=== PATIENT | female | born 1985 | race Two or more races ===

== ENCOUNTER 2019-11-20 07:27 | Outpatient (CLI) | payer OTHER ==
[2019-11-20 13:06] LABS: MEAN CORPUSCULAR HEMOGLOBIN 29.3 pg (27.0-34.8); MEAN CORPUSCULAR HGB CONC 33.4 g/dL (32.4-35.8); MEAN CORPUSCULAR VOLUME 87.7 fL (80-100); MEAN PLATELET VOLUME 8.3 fL (7.4-10.4); PLATELET COUNT 315 x10^3/uL (130-400); RED BLOOD COUNT 4.02 x10^6/uL (3.82-5.3); RED CELL DISTRIBUTION WIDTH 12.7 % (9.6-15.2)
[2019-11-20 13:07] LABS: CHLORIDE 105 mmol/L (98-107)
[2019-11-20 13:16] LABS: ALANINE AMINOTRANSFERASE 16 U/L (12-78); ALBUMIN 2.7 g/dL (3.4-5.0); ALKALINE PHOSPHATASE 91 U/L (45-117); ANION GAP 7 mmol/L (5-15); BILIRUBIN,TOTAL 0.3 mg/dL (0.2-1.0); CALCIUM 8.8 mg/dL (8.5-10.1); CREATININE 0.53 mg/dL (0.55-1.02); GLUCOSE,1H PP 50GM DOSE 134 mg/dL (74-106); TOTAL PROTEIN 6.3 g/dL (6.4-8.2)
== END 2019-11-20 23:59 | disposition home or self-care (01) ==
LOC: CFH 07:27
PROVIDERS: ATTEND Obstetrics & Gynecology
DX: Z34.02 Encounter for supervision of normal first pregnancy, second trimester (principal); Z3A.00 Weeks of gestation of pregnancy not specified
CPT/HCPCS: 36415; 80053; 82950; 85027; 86592

== ENCOUNTER 2020-01-13 10:37 | Outpatient (CLI) | payer OTHER ==
[~2020-01-13] VITALS: Ht 162.6 cm; Wt 96.3 kg
[2020-01-13 10:54] VITALS: BP 134/80
[2020-01-13 11:55] LABS: MICROSCOPIC NOT IND
[2020-01-13 12:09] LABS: BASOPHILS # (AUTO) 0.02 x10^3/uL (0-0.1); BASOPHILS % (AUTO) 0 % (0-1); EOSINOPHILS # (AUTO) 0.04 x10^3/uL (0-0.4); EOSINOPHILS % (AUTO) 0 % (1-7); LYMPHOCYTES # (AUTO) 1.32 x10^3/uL (1-3.4); LYMPHOCYTES % (AUTO) 14 % (22-44); MD NO; MEAN CORPUSCULAR HEMOGLOBIN 29.2 pg (27.0-34.8); MEAN CORPUSCULAR HGB CONC 33.1 g/dL (32.4-35.8); MEAN CORPUSCULAR VOLUME 88.1 fL (80-100); MEAN PLATELET VOLUME 8.3 fL (7.4-10.4); MONOCYTES # (AUTO) 0.81 x10^3/uL (0.2-0.8); MONOCYTES % (AUTO) 9 % (2-9); NEUTROPHILS % (AUTO) 77 % (42-75); PLATELET COUNT 258 x10^3/uL (130-400); RED BLOOD COUNT 4.21 x10^6/uL (3.82-5.3); RED CELL DISTRIBUTION WIDTH 13.8 % (9.6-15.2)
[2020-01-13 12:13] LABS: CREATININE,URINE RANDOM 70.1 mg/dL
[2020-01-13 12:23] LABS: ALBUMIN 2.6 g/dL (3.4-5.0); ANION GAP 7 mmol/L (5-15); CALCIUM 8.7 mg/dL (8.5-10.1); CHLORIDE 107 mmol/L (98-107)
[2020-01-13 12:43] LABS: ALANINE AMINOTRANSFERASE 14 U/L (12-78); ALKALINE PHOSPHATASE 120 U/L (45-117); BILIRUBIN,TOTAL 0.2 mg/dL (0.2-1.0); CREATININE 0.48 mg/dL (0.55-1.02); TOTAL PROTEIN 6.4 g/dL (6.4-8.2)
[2020-01-13 12:44] LABS: BILIRUBIN, DIRECT < 0.1 mg/dL (0.1-0.2)
[2020-01-13] MEDS ORDERED: PREN1TAB60 PO (12:50)
[2020-01-13] MEDS ORDERED: ASPI-515 PO (12:50)
== END 2020-01-13 13:00 | disposition home or self-care (01) ==
LOC: LDOP 10:37
PROVIDERS: ATTEND Obstetrics & Gynecology
DX: O36.8130 Decreased fetal movements, third trimester, not applicable or unspecified (principal); Z3A.34 34 weeks gestation of pregnancy
CPT/HCPCS: 36415; 59025; 80053; 81003; 82248; 82570; 84156; 84550; 85025; 99201; G0463

== ENCOUNTER → 2020-02-13 | Outpatient (CLI) | payer OTHER ==
[~2020-02-13] VITALS: Ht 162.6 cm; Wt 110.0 kg
[~2020-02-13] MED LIST: ASPI-515 PO; PREN1TAB60 PO
[2020-02-13 13:33] LABS: MICROSCOPIC INDICATED
[2020-02-13 13:48] LABS: BASOPHILS # (AUTO) 0.02 x10^3/uL (0-0.1); BASOPHILS % (AUTO) 0 % (0-1); EOSINOPHILS # (AUTO) 0.09 x10^3/uL (0-0.4); EOSINOPHILS % (AUTO) 1 % (1-7); LYMPHOCYTES # (AUTO) 1.46 x10^3/uL (1-3.4); LYMPHOCYTES % (AUTO) 13 % (22-44); MD NO; MEAN CORPUSCULAR HEMOGLOBIN 29.2 pg (27.0-34.8); MEAN CORPUSCULAR HGB CONC 33.2 g/dL (32.4-35.8); MEAN CORPUSCULAR VOLUME 88.1 fL (80-100); MEAN PLATELET VOLUME 8.6 fL (7.4-10.4); MONOCYTES # (AUTO) 0.73 x10^3/uL (0.2-0.8); MONOCYTES % (AUTO) 7 % (2-9); NEUTROPHILS # (AUTO) 8.93 x10^3/uL (1.8-6.8); NEUTROPHILS % (AUTO) 80 % (42-75); PLATELET COUNT 286 x10^3/uL (130-400); RED BLOOD COUNT 4.52 x10^6/uL (3.82-5.3); RED CELL DISTRIBUTION WIDTH 14.4 % (9.6-15.2)
[2020-02-13 13:50] LABS: ALANINE AMINOTRANSFERASE 19 U/L (12-78); ALBUMIN 2.8 g/dL (3.4-5.0); ANION GAP 9 mmol/L (5-15); CALCIUM 9.2 mg/dL (8.5-10.1); CHLORIDE 104 mmol/L (98-107); CREATININE 0.52 mg/dL (0.55-1.02)
[2020-02-13 13:53] LABS: ALKALINE PHOSPHATASE 147 U/L (45-117); BILIRUBIN,TOTAL 0.3 mg/dL (0.2-1.0); TOTAL PROTEIN 6.9 g/dL (6.4-8.2)
[2020-02-13 13:55] LABS: CREATININE,URINE RANDOM 56.6 mg/dL
== END | disposition home or self-care (01) ==
LOC: LDOP 12:56
PROVIDERS: ATTEND Obstetrics & Gynecology
DX: O16.3 Unspecified maternal hypertension, third trimester (principal); Z3A.36 36 weeks gestation of pregnancy
CPT/HCPCS: 36415; 59025; 80053; 81001; 82570; 84156; 84550; 85025

== ENCOUNTER 2020-02-15 22:18 | Inpatient (IN) | payer OTHER ==
[~2020-02-15] VITALS: Ht 162.6 cm; Wt 100.0 kg
[2020-02-15 22:19] VITALS: BP 126/80
[2020-02-15] MEDS ORDERED: D5%-LACTATED RINGERS 1,000 ML IV SCH (22:29)
[2020-02-15] MEDS ORDERED: OXYTOCIN 30U/ 0.9% NaCL 500ML 500 ML IV PRN (22:29)
[2020-02-15] MEDS ORDERED: OXYTOCIN 30U/ 0.9% NaCL 500ML 500 ML IV ONE (22:29)
[2020-02-15] MEDS ORDERED: METOCLOPRAMIDE 5 MG/ML, 2ML IVPush PRN (22:30)
[2020-02-15] MEDS ORDERED: FENTANYL PF 100 MCG/2ML IVPush PRN (22:30)
[2020-02-15] MEDS ORDERED: FENTANYL PF 100 MCG/2ML IV PRN (22:30)
[2020-02-15] MEDS: LACTATED RINGERS 1,000 ML IV SCH (22:30)
[2020-02-15] MEDS ORDERED: SODIUM CITRATE/CITRIC ACID 30 ML UDC PO PRN (22:30)
[2020-02-15] MEDS ORDERED: TERBUTALINE 1 MG/ML, 1ML IVPush PRN (22:30)
[2020-02-15] MEDS ORDERED: MISOPROSTOL 25 MCG TABLET VG PRN (22:30)
[2020-02-15] MEDS ORDERED: CALCIUM CARBONATE 500 MG TAB.CHEW PO PRN (22:30)
[2020-02-15] MEDS ORDERED: TERBUTALINE 1 MG/ML, 1ML SQ PRN (22:30)
[2020-02-15] MEDS ORDERED: ONDANSETRON 2MG/ML, 2ML IVPush PRN (22:30)
[2020-02-15] MEDS ORDERED: NEWBORN KIT ONE (22:33)
[2020-02-15] MEDS ORDERED: LIDOCAINE 1%, 20ML ONE (22:33)
[2020-02-15] MEDS ORDERED: MISOPROSTOL 25 MCG TABLET ONE (22:34)
[2020-02-15] MEDS ORDERED: OXYTOCIN 30U/ 0.9% NaCL 500ML 500 ML ONE (22:34)
[2020-02-15] MEDS ORDERED: CALCIUM CARBONATE 500 MG TAB.CHEW ONE (22:59)
[2020-02-15 23:28] LABS: BASOPHILS # (AUTO) 0.03 x10^3/uL (0-0.1); BASOPHILS % (AUTO) 0 % (0-1); EOSINOPHILS # (AUTO) 0.04 x10^3/uL (0-0.4); EOSINOPHILS % (AUTO) 0 % (1-7); LYMPHOCYTES # (AUTO) 1.82 x10^3/uL (1-3.4); LYMPHOCYTES % (AUTO) 17 % (22-44); MD NO; MEAN CORPUSCULAR HEMOGLOBIN 29.3 pg (27.0-34.8); MEAN CORPUSCULAR HGB CONC 33.6 g/dL (32.4-35.8); MEAN PLATELET VOLUME 8.8 fL (7.4-10.4); MONOCYTES # (AUTO) 0.99 x10^3/uL (0.2-0.8); MONOCYTES % (AUTO) 9 % (2-9); NEUTROPHILS # (AUTO) 7.76 x10^3/uL (1.8-6.8); NEUTROPHILS % (AUTO) 73 % (42-75); PLATELET COUNT 277 x10^3/uL (130-400); RED BLOOD COUNT 4.24 x10^6/uL (3.82-5.3); RED CELL DISTRIBUTION WIDTH 14.6 % (9.6-15.2)
[2020-02-16] MEDS ORDERED: FAMOTIDINE 20 MG TABLET ONE ×2 (00:37→16:32)
[2020-02-16] MEDS: FAMOTIDINE 20 MG TABLET PO PRN ×2 (00:42→16:33)
[2020-02-16] MEDS ORDERED: MISOPROSTOL 25 MCG TABLET ONE (03:49)
[2020-02-16] MEDS ORDERED: CALCIUM CARBONATE 500 MG TAB.CHEW ONE (08:37)
[2020-02-16] MEDS ORDERED: FENTANYL/BUPIV./NS/PF 250 ML EPIDCONT ONE ×2 (09:48→10:56)
[2020-02-16] MEDS ORDERED: LIDOCAINE 1%, 20ML ONE (10:56)
[2020-02-16] MEDS ORDERED: LIDOCAINE/PF 1.5%-EPI 1:200K, 30ML ONE (10:56)
[2020-02-16] MEDS ORDERED: FENTANYL/BUPIV./NS/PF 250 ML EPIDCONT SCH (15:57)
[2020-02-16] MEDS ORDERED: ONDANSETRON 2MG/ML, 2ML IVPush PRN (16:00)
[2020-02-16] MEDS ORDERED: EPHEDRINE 50 MG/ML, 1ML IVPush PRN (16:00)
[2020-02-16] MEDS ORDERED: DIPHENHYDRAMINE 50 MG/ML, 1ML IVPush PRN (16:00)
[2020-02-16] MEDS ORDERED: NALOXONE 0.4 MG/ML, 1ML IVPush PRN (16:00)
[2020-02-16] MEDS: LACTATED RINGERS 1,000 ML IV SCH ×2 (16:31→17:00)
[2020-02-16] MEDS ORDERED: LACTATED RINGERS 1,000 ML IVBOLUS PRN (17:00)
[2020-02-16] MEDS: OXYTOCIN 30U/ 0.9% NaCL 500ML 500 ML IV SCH (23:37)
[2020-02-17] MEDS ORDERED: MISOPROSTOL 200 MCG TABLET PR PRN
[2020-02-17] MEDS ORDERED: OXYcodone/APAP 5/325MG TABLET PO PRN ×2
[2020-02-17] MEDS ORDERED: CALCIUM CARBONATE 500 MG TAB.CHEW PO PRN
[2020-02-17] MEDS ORDERED: ONDANSETRON 2MG/ML, 2ML IV PRN
[2020-02-17] MEDS ORDERED: SIMETHICONE 80 MG CHEW TAB PO PRN
[2020-02-17] MEDS: LACTATED RINGERS 1,000 ML IV SCH ×3 (01:00→17:00)
[2020-02-17 04:15] VITALS: BP 139/89
[2020-02-17] MEDS: IBUPROFEN 600 MG TABLET PO PRN ×4 (04:15→23:40)
[2020-02-17 08:00] VITALS: BP 134/86
[2020-02-17] MEDS: PRENATAL VIT/IRON/FA 1 EACH TABLET PO SCH (08:50)
[2020-02-17] MEDS: DOCUSATE 100 MG CAPSULE PO PRN ×2 (08:51→23:40)
[2020-02-17] MEDS: OXYTOCIN 30U/ 0.9% NaCL 500ML 500 ML IV SCH ×2 (09:37→19:37)
[2020-02-17 12:00] VITALS: BP 139/84
[2020-02-17 20:00] VITALS: BP 159/75
[2020-02-17 23:45] VITALS: BP 139/88
[2020-02-18] MEDS: LACTATED RINGERS 1,000 ML IV SCH (01:00)
[2020-02-18] MEDS: OXYTOCIN 30U/ 0.9% NaCL 500ML 500 ML IV SCH (05:37)
[2020-02-18] MEDS: DOCUSATE 100 MG CAPSULE PO PRN (08:57)
[2020-02-18] MEDS: IBUPROFEN 600 MG TABLET PO PRN (08:57)
[2020-02-18] MEDS: PRENATAL VIT/IRON/FA 1 EACH TABLET PO SCH (08:57)
[2020-02-18] MEDS ORDERED: DOCU-131 PO (10:57)
[2020-02-18 11:12] LABS: MEAN CORPUSCULAR HEMOGLOBIN 29.6 pg (27.0-34.8); MEAN CORPUSCULAR HGB CONC 33.4 g/dL (32.4-35.8); MEAN PLATELET VOLUME 8.4 fL (7.4-10.4); PLATELET COUNT 265 x10^3/uL (130-400); RED CELL DISTRIBUTION WIDTH 14.8 % (9.6-15.2)
[2020-02-18 11:52] LABS: BASOPHILS # (AUTO) 0.04 x10^3/uL (0-0.1); BASOPHILS % (AUTO) 0 % (0-1); EOSINOPHILS # (AUTO) 0.08 x10^3/uL (0-0.4); EOSINOPHILS % (AUTO) 1 % (1-7); LYMPHOCYTES # (AUTO) 1.89 x10^3/uL (1-3.4); LYMPHOCYTES % (AUTO) 13 % (22-44); MD SCAN; MONOCYTES # (AUTO) 0.91 x10^3/uL (0.2-0.8); MONOCYTES % (AUTO) 6 % (2-9); NEUTROPHILS # (AUTO) 11.26 x10^3/uL (1.8-6.8); NEUTROPHILS % (AUTO) 79 % (42-75)
== END 2020-02-18 11:58 | disposition home or self-care (01) | DRG 807 ==
LOC: LDIP 22:18 → 2NW 02-17 04:04
PROVIDERS: ADMIT Obstetrics & Gynecology; ATTEND Obstetrics & Gynecology
PROC: 3E0P7VZ Introduction of Hormone into Female Reproductive, Via Natural or Artificial Opening (ICD-10-PCS; 2020-02-15)
PROC: 0KQM0ZZ Repair Perineum Muscle, Open Approach (ICD-10-PCS; principal; 2020-02-17)
PROC: 10E0XZZ Delivery of Products of Conception, External Approach (ICD-10-PCS; 2020-02-17)
PROC: 3E0R3BZ Introduction of Anesthetic Agent into Spinal Canal, Percutaneous Approach (ICD-10-PCS; 2020-02-17)
PROC: 00HU33Z Insertion of Infusion Device into Spinal Canal, Percutaneous Approach (ICD-10-PCS; 2020-02-17)
DX: O13.4 Gestational [pregnancy-induced] hypertension without significant proteinuria, complicating childbirth (principal); Z37.0 Single live birth; O69.82X0 Labor and delivery complicated by other cord entanglement, without compression, not applicable or unspecified; O70.1 Second degree perineal laceration during delivery; Z3A.39 39 weeks gestation of pregnancy; Z90.49 Acquired absence of other specified parts of digestive tract; Z20.828 Contact with and (suspected) exposure to other viral communicable diseases
CPT/HCPCS: 36415; J3490; 85025; 86592; 86850; 86900; 87635; G0378; J2405; J2590; J3010; J7120